=== PATIENT | female | born 1955 | race Two or more races ===

== ENCOUNTER 2023-04-15 04:06 | Inpatient (IN) | payer MEDICARE, OTHER ==
[~2023-04-15] VITALS: Ht 167.6 cm; Wt 72.5 kg
[2023-04-15 05:04] LABS: Basophils # (auto) 0.1 10 ^3/uL (0-0.2); Basophils % (auto) 0.7 % (0.0-2.0); Eosinophils # (auto) 0.1 10 ^3/uL (0-0.8); Eosinophils % (auto) 1.9 % (0.0-7.0); Hematocrit 40.1 % (36.0-46.0); Hemoglobin 13.6 g/dL (12.2-16.2); Lymphocytes # (auto) 1.7 10 ^3/uL (0.4-5.4); Lymphocytes % (auto) 21.8 % (10.0-50.0); Mean Corpuscular Hemoglobin 30.7 pg (28.0-32.0); Mean Corpuscular Volume 90.1 fL (80.0-100.0); Monocytes # (auto) 0.5 10 ^3/uL (0-1.3); Monocytes % (auto) 6.9 % (0.0-12.0); Neutrophils # (auto) 5.3 10 ^3/uL (1.6-8.6); Neutrophils % (auto) 68.7 % (37.0-80.0); Nucleated Red Blood Cells % 0.1 %; Red Blood Cells 4.45 10^6/uL (4.0-5.20); Red Cell Distribution Width 13.5 % (11.8-14.3); White Blood Cell 7.7 10^3/uL (4.4-10.8)
[2023-04-15 05:07] LABS: INR 1.01 (0.9-1.15); Partial Thromboplastin Time 24.9 sec (24.6-33.4)
[2023-04-15 05:12] LABS: Albumin 3.6 g/dL (3.4-5.0); BUN/Creatinine Ratio 18.1 (10.0-20.0); Calcium 8.8 mg/dL (8.5-10.1); Magnesium 2.2 mg/dL (1.6-2.6); Potassium 3.3 mmol/L (3.5-5.1)
[2023-04-15 05:15] LABS: Bilirubin, Total 0.4 mg/dL (0.2-1.0); Total Protein 7.3 g/dL (6.4-8.2)
[2023-04-15] MEDS ORDERED: HYDROmorphone HCL 2 MG/ML VL/or syr IV ONE (06:00)
[2023-04-15] MEDS ORDERED: ONDANSETRON HCL 4 MG/2 ML VIAL IV ONE ×2 (06:00→09:00)
[2023-04-15] MEDS ORDERED: ASPirin 81 mg TAB PO ONE (06:15)
[2023-04-15] MEDS ORDERED: ACETAMINOPHEN 325 MG TAB PO ONE (09:00)
[2023-04-15] MEDS ORDERED: NITROGLYCERIN 0.4 MG SL TAB SL PRN (10:00)
[2023-04-15] MEDS ORDERED: MORPHINE SULFATE INJ 2 MG/ml SYRG IV PRN (10:00)
[2023-04-15] MEDS ORDERED: KETOROLAC TROMETH 30 MG/ML 1ML VIAL IV ONE (10:00)
[2023-04-15] MEDS ORDERED: SODIUM CHLORIDE 0.9% 1,000 ML IV ONE (10:00)
[2023-04-15] MEDS ORDERED: ASPirin 81 mg TAB PO SCH (10:00)
[2023-04-15] MEDS: PANTOPRAZOLE 40 MG TAB PO SCH (10:49)
[2023-04-15] MEDS: METOCLOPRAMIDE HCL 5MG/ml INJ 2ml VIAL IV PRN ×2 (10:49→18:37)
[2023-04-15 11:18] LABS: Urine Bacteria NONE SEEN /hpf (None Seen); Urine Blood Negative /uL (Negative); Urine WBC <1 /hpf (0 - 5)
[2023-04-15 11:24] LABS: Alcohol, Urine < 3.0 mg/dL (0-10); Amphetamine Screen, Urine NEGATIVE (NEGATIVE); Barbiturate Scree,Urine NEGATIVE (NEGATIVE); Benzodiazephine Screen, Urine NEGATIVE (NEGATIVE); Cannabinoid Screen, Urine NEGATIVE (NEGATIVE); Cocaine Screen, Urine NEGATIVE (NEGATIVE); Opiate Scree,Urine NEGATIVE (NEGATIVE); Phencyclidine Screen, Urine NEGATIVE (NEGATIVE)
[2023-04-15] MEDS: HYDROcodone-ACET 7.5/325MG TAB PO PRN ×2 (14:36→18:37)
[2023-04-15] MEDS: ATORVASTATIN 20 MG TAB PO SCH (21:32)
[2023-04-15 22:30] VITALS: BP 104/36
[2023-04-16] VITALS (20 sets, daily range): BP systolic 98–121; BP diastolic 36–58
[2023-04-16] MEDS: METOCLOPRAMIDE HCL 5MG/ml INJ 2ml VIAL IV PRN (01:19)
[2023-04-16] MEDS: HYDROcodone-ACET 7.5/325MG TAB PO PRN (04:55)
[2023-04-16 06:13] LABS: Basophils # (auto) 0 10 ^3/uL (0-0.2); Basophils % (auto) 0.3 % (0.0-2.0); Eosinophils # (auto) 0 10 ^3/uL (0-0.8); Eosinophils % (auto) 0.1 % (0.0-7.0); Hematocrit 38.6 % (36.0-46.0); Hemoglobin 13.1 g/dL (12.2-16.2); Lymphocytes # (auto) 1.6 10 ^3/uL (0.4-5.4); Lymphocytes % (auto) 17.1 % (10.0-50.0); Mean Corpuscular Hemoglobin 30.3 pg (28.0-32.0); Mean Corpuscular Hgb Conc. 33.8 g/dL (32.0-36.0); Mean Corpuscular Volume 89.8 fL (80.0-100.0); Monocytes # (auto) 0.5 10 ^3/uL (0-1.3); Monocytes % (auto) 5.3 % (0.0-12.0); Neutrophils # (auto) 7.2 10 ^3/uL (1.6-8.6); Neutrophils % (auto) 77.2 % (37.0-80.0); Red Cell Distribution Width 13.7 % (11.8-14.3); White Blood Cell 9.3 10^3/uL (4.4-10.8)
[2023-04-16 06:23] LABS: Albumin 3.3 g/dL (3.4-5.0); Potassium 3.9 mmol/L (3.5-5.1)
[2023-04-16 06:32] LABS: BUN/Creatinine Ratio 31.8 (10.0-20.0); Bilirubin, Total 0.7 mg/dL (0.2-1.0); Calcium 8.3 mg/dL (8.5-10.1); Total Protein 6.4 g/dL (6.4-8.2)
[2023-04-16] MEDS: PANTOPRAZOLE 40 MG TAB PO SCH (08:41)
[2023-04-16] MEDS ORDERED: MECLIZINE HCL 25 MG TAB PO ONE (09:15)
[2023-04-16] MEDS ORDERED: ASPirin 81 mg TAB PO SCH (10:00)
[2023-04-16] MEDS ORDERED: LORazepam 2MG/ML-1ML VIAL IV PRN (10:15)
[2023-04-16] MEDS ORDERED: SODIUM CHLORIDE 0.9% 1,000 ML IV SCH ×2 (10:15→19:00)
[2023-04-16] MEDS ORDERED: IOHEXOL 350 MG/ML 100ML IJ ONE (10:45)
[2023-04-16] MEDS ORDERED: ONDANSETRON HCL 4 MG/2 ML VIAL IV PRN (10:45)
[2023-04-16] MEDS: ACETAMINOPHEN 325 MG TAB PO PRN ×2 (13:09→20:22)
[2023-04-16] MEDS ORDERED: MECLIZINE HCL 25 MG TAB PO SCH (14:00)
[2023-04-16] MEDS ORDERED: traMADol HCL 50 MG TAB PO PRN (15:00)
[2023-04-16] MEDS ORDERED: SODIUM CHL 3% 500 ML IV ONE (18:15)
[2023-04-16] MEDS ORDERED: DexAMETHasone SOD PHOS 10MG/1ML VIAL INJ IV ONE (18:15)
[2023-04-16] MEDS ORDERED: SODIUM CHL 3% 500 ML IV SCH (19:15)
[2023-04-16 20:34] LABS: BUN/Creatinine Ratio 32.8 (10.0-20.0); Calcium 8.1 mg/dL (8.5-10.1); Potassium 3.7 mmol/L (3.5-5.1)
[2023-04-16] MEDS ORDERED: DexAMETHasone SOD PHOS 4 MG/1ML SDV INJ IV SCH (22:00)
[2023-04-16] MEDS: ATORVASTATIN 20 MG TAB PO SCH (22:18)
== END 2023-04-16 22:50 | disposition short-term general hospital (02) | DRG 64 ==
LOC: EDBD 04:06 → ER 04:17 → TELE 10:20 → TELE-WESTW 22:22 → ICU WEST 04-16 18:30
PROVIDERS: ADMIT Nurse Practitioner Family; ATTEND Internal Medicine Geriatric Medicine
DX: I63.9 Cerebral infarction, unspecified (principal); G93.6 Cerebral edema; I21.A1 Myocardial infarction type 2; E44.1 Mild protein-calorie malnutrition; K65.4 Sclerosing mesenteritis; E11.9 Type 2 diabetes mellitus without complications; E78.5 Hyperlipidemia, unspecified; E55.9 Vitamin D deficiency, unspecified; E87.6 Hypokalemia; M79.3 Panniculitis, unspecified; F17.210 Nicotine dependence, cigarettes, uncomplicated; G43.909 Migraine, unspecified, not intractable, without status migrainosus; Z82.49 Family history of ischemic heart disease and other diseases of the circulatory system; Z83.3 Family history of diabetes mellitus; Z68.25 Body mass index [BMI] 25.0-25.9, adult
CPT/HCPCS: 36415; 70450; 70496; 70551; 71045; 71250; 74176; 80048; 80053; 80061; 80307; 81001; 82306; 83036; 83735; 84443; 84484; 85025; 85610; 85730; 87081; 93306; 96361; 96374; 96375; 96376; G0378; J1100; J1885; J2405